=== PATIENT | male | born 1935 | race Caucasian/White ===

== ENCOUNTER 2016-06-22 16:02 | Emergency (ER) | payer MEDICARE, OTHER ==
[~2016-06-22] VITALS: Ht 180.3 cm; Wt 59.0 kg
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
[2016-06-22 17:28] LABS: AUTOMATED NEUTROPHIL # 5.6 TH/MM3 (1.8-7.7); BASOPHIL # 0.1 TH/MM3 (0-0.2); BASOPHIL % 0.7 % (0.0-2.0); EOSINOPHIL # 0.2 TH/MM3 (0-0.4); EOSINOPHIL % 2.4 % (0.0-4.0); HEMATOCRIT 40.7 % (39.0-51.0); HEMO FLAGS DIFF FINAL; LYMPH % 21.1 % (9.0-44.0); LYMPHOCYTE # 1.8 TH/MM3 (1.0-4.8); MEAN CELL VOLUME 89.5 FL (80.0-100.0); MEAN CORPUSCULAR HEMOGLOBIN 30.8 PG (27.0-34.0); MEAN CORPUSCULAR HGB CONC 34.4 % (32.0-36.0); MONO % 8.2 % (0.0-8.0); NEUT % 67.6 % (16.0-70.0); PLATELET COUNT 185 TH/MM3 (150-450); RED BLOOD COUNT 4.55 MIL/MM3 (4.50-5.90); RED CELL DISTRIBUTION WIDTH 13.1 % (11.6-17.2); WHITE BLOOD COUNT 8.4 TH/MM3 (4.0-11.0)
[2016-06-22 17:41] VITALS: BP 137/74; PULSE 62; RESP 18; TEMP 97.8; O2SAT 99
[2016-06-22 17:46] VITALS: BP 137/74; PULSE 62; RESP 18; TEMP 98.3; O2SAT 98
[2016-06-22 17:46] LABS: BACTERIA, URINE RARE /hpf; BLOOD, URINE NEG (NEG); COMMENT (UR) CULTURE INDICATED; CULTURE IF INDICATED CULTURE INDICATED; GLUCOSE,URINE NEG (NEG); HYALINE CAST, URINE 4 /lpf (RARE); KETONE, URINE NEG (NEG); MUCUS URINE FEW /lpf (OCC); NITRITE,URINE NEG (NEG); PH, URINE 5.5 (5.0-8.5); SQUAMOUS EPITHELIAL CELL URINE <1 /hpf (0-5); URINE COLOR YELLOW (YELLW/STRAW)
[2016-06-22 17:53] LABS: AMPHETAMINE, URINE NEG (NEG); BARBITURATES, URINE NEG (NEG); COCAINE, URINE NEG (NEG)
[2016-06-22 17:56] LABS: ANION GAP 10 MEQ/L (5-15); AST (GOT) 28 U/L (15-37); BICARBONATE 25.5 MEQ/L (21.0-32.0); BLOOD UREA NITROGEN 31 MG/DL (7-18); CHLORIDE 105 MEQ/L (98-107); GLOMERULAR FILTRATION RATE 71 ML/MIN (>89); POTASSIUM 3.8 MEQ/L (3.5-5.1); SODIUM (NA) 140 MEQ/L (136-145)
[2016-06-22 17:59] LABS: ALKALINE PHOSPHATASE 90 U/L (45-117); ALT (GPT) 28 U/L (12-78); TOTAL BILIRUBIN ADULT 0.3 MG/DL (0.2-1.0)
[2016-06-22] MEDS ORDERED: CIPROFLOXACIN 500 MG TAB PO ONE (18:30)
[2016-06-22 19:14] VITALS: BP 148/70; PULSE 68; RESP 18; TEMP 98.1; O2SAT 98
[2016-06-22] MEDS ORDERED: SODIUM CHLOR 0.9% 1000 ML INJ 1,000 ML IV ONE (21:00)
[2016-06-22 21:21] VITALS: BP 158/77; PULSE 67; RESP 18; O2SAT 98
--- NOTE | 2016-06-22 21:29 | RADRPT ---
EXAM DATE/TIME: 06/22/2016 21:18 [place] COMPARISON: No previous studies available for comparison. INDICATIONS : Altered mental status RADIATION DOSE: 42.79 CTDIvol (mGy) MEDICAL HISTORY : Dementia. SURGICAL HISTORY : None. ENCOUNTER: Initial ACUITY: 1 day PAIN SCALE: 0/10 LOCATION: Bilateral cranial TECHNIQUE: Multiple contiguous axial images were obtained of the head. Using automated exposure control and adj ustment of the mA and/or kV according to patient size, radiation dose was kept as low as reasonably a chievable to obtain optimal diagnostic quality images. FINDINGS: There is moderate, diffuse ventriculomegaly. Chronic appearing low attenuation seen in the periventri cular and deep white matter. No intracranial hemorrhage or hematoma. No mass, mass effect or midline shift. No evidence of an acute ischemic event. Skull is intact. CONCLUSION: 1. No bleed or other acute intracranial abnormality demonstrated. 2. Moderate ventriculomegaly, presumably chronic. Normal pressure hydrocephalus would be in the diffe rential. 3. Chronic white matter changes. Balbir Graham MD on June 22, 2016 at 21:26 Board Certified Radiologist. This report was verified electronically.
[2016-06-22] MEDS ORDERED: ONDANSETRON HCL 4 MG/2 ML VIAL ONE (23:16)
[2016-06-23 01:02] VITALS: BP 140/67; PULSE 65; RESP 16; O2SAT 98
[2016-06-23 03:38] VITALS: BP 127/78; PULSE 68; RESP 16; O2SAT 98
--- NOTE | 2016-06-23 11:54 | EKG ---
Date Performed: 06/22/2016 Time Performed: 17:22:12 PTAGE: 81 years EKG: SINUS BRADYCARDIA NONSPECIFIC T-WAVE ABNORMALITY BORDERLINE ECG Baseline artifact makes thi s substandard for interpretation NO PREVIOUS TRACING DOCTOR: Denver Rodgers Interpretating Date/Time 06/23/2016 11:52:58
[2016-06-23 13:45] VITALS: BP 140/82
--- NOTE | 2016-06-25 11:50 | HHI.HP ---
Provisional Diagnosis Admission Date [place] I. Dementia with Behavioral disturbances Certification of Person's Competence To Provide Express and Informed Consent I have personally examined Álvaro Arvizu , a person being served at [facility] on, Jun 25, 2016 11:37. Express and informed consent means consent voluntarily given in writing, by a competent person, after sufficient explanation and disclosure of the subject matter involved to enable the person to make a knowing and willful decision without any element of force, fraud, deceit, duress, or other form of constraint or coercion. This person is 18 years of age or older, is not now known to be incompetent to consent to treatment with a guardian advocate, and does not have a health care surrogate or proxy currently making medical treatment decisions. I have found this person to be one of the following: [] Competent to provide express and informed consent, as defined above, for voluntary admission to this facility and is competent to provide express and informed consent for treatment. He/she has the consistent capacity to make well reasoned, willful, and knowing decisions concerning his or her medical or mental health treatment. The person fully and consistently understands the purpose of the admission for examination/placement and is fully capable of personally exercising all rights assured [place] [] Incompetent to provide express and informed consent to voluntary admission, and this is incompetent to provide express and informed consent to treatment. The person must be transferred to involuntary status and a petition for a guardian advocate filed with the Circuit Court. [X Refusing to provide express and informed consent to voluntary admission but is competent to provide express and informed consent for treatment. The person must be discharged or transferred to involuntary status. Form shall be completed within 24 hours of a person's arrival at the receiving facility and filed in the clinical record of each person: 1. Admitted on a voluntary basis 2. Permitted to provide express and informed consent to his/her own treatment 3. Allowed to transfer from involuntary to voluntary status 4. Prior to permitting a person to consent to his or her own treatment after having been previously found incompetent to consent to treatment. History of Present Illness Capacity: Lacks Capacity HPI The patient is a 81-year-old man, was , with psychiatric history of dementia with behavior disturbances, he is domiciled with his , with no medical history, he was in they are a couple of days ago for behavioral disturbances and was discharged back to his house, but yesterday was brought again on the Messer act due to aggressive behavior at home. Patient was seen for evaluation today, he seems to be very lethargic, alert but distant, he very rarely answer questions and follow commands, he seems to be disoriented in time, person and place, and does not provide any meaningful information for the psychiatric assessment most probably due to the level of his dementia. His was try to be contacted for collateral information, but she was not reached. Review of Systems ROS Limitations: Uncooperative Past Family Social History Coded Allergies: No Known Allergies (Unverified , 06/22/16) Reported Medications Betaxolol Opth Drops 0.5% Soln1-2 Drop EACH EYE BID #1 BOTTLE Ref 0 06/25/16 Brinzolamide-Brimonidine Opth Drops (Simbrinza Opth Drops)1-0.2% Susp1 Drop EACH EYE Q8HR #1 BOTTLE Ref 0 06/25/16 Rivastigmine Patch (Exelon Patch)4.6 mg/24 hr Patch1 Patch T-DERMAL DAILY #30 PATCH Ref 0 06/25/16 Mirtazapine 15 Mg Tab15 Mg PO HS #30 TAB Ref 0 06/25/16 Meloxicam 7.5 Mg Tab7.5 Mg PO DAILY Ref 0 06/25/[address] (Nexium 24 HR)20 Mg Capdr40 Mg PO DAILY 06/25/16 Sertraline 100 Mg Xnq123 Mg PO DAILY #30 TAB Ref 0 06/25/16 Sertraline 50 Mg Tab50 Mg PO HS #30 TAB Ref 0 06/25/16 Silodosin (Rapaflo)4 Mg Cap4 Mg PO HS #30 CAP Ref 0 06/25/16 Atenolol 25 Mg Tab25 Mg PO DAILY #30 TAB 06/25/16 Physical Exam Vital Signs Vital Signs Date Time Temp Pulse Resp B/P Pulse Ox O2 Delivery O2 Flow Rate FiO2 06/23/16 13:45 62 20 140/82 96 06/23/16 03:38 Room Air 06/22/16 19:14 98.1 Mental Status Examination Patient is non-cooperative with mental status due to level of dementia Assessment & Plan Problem List: (1) Dementia Assessment & Plan: On psychiatric evaluation today the patient seems to be alert, but distant, lethargic, non-cooperative with psychiatric assessment and unable to provide any meaningful information. No collateral information is available as of this moment. Will place a hospitalist consult to do a full workup of dementia amputation underlying medical conditions accounting for AMS. Will restart Zoloft 100 mg and Remeron 15 mg, the patient has been on. Also will consult PT to assess level of care. custodial worker intervention for collateral information and was started to coordinate safe discharge. ICD Code: F03.90 Assessment & Plan Estimated LOS: days Problem Qualifiers (1) Dementia: Qualified Code: F03.91 - Dementia with behavioral disturbance, unspecified dementia type Diogo Mcclellan MD Jun 25, 2016 11:50
== END 2016-06-23 13:52 ==
LOC: NEPE 16:02 → NEPA 06-23 13:52
DX: F03.90 Unspecified dementia, unspecified severity, without behavioral disturbance, psychotic disturbance, mood disturbance, and anxiety (principal); N39.0 Urinary tract infection, site not specified; R94.31 Abnormal electrocardiogram [ECG] [EKG]
CPT/HCPCS: 70450; 80053; 80307; 80320; 81001; 85025; 87086; 93005; 96361; 96374; 99285; J2405; J7030

== ENCOUNTER 2016-06-24 20:12 | Inpatient (IN) | payer MEDICARE, OTHER ==
[2016-06-24 22:30] VITALS: BP 137/72; PULSE 78; RESP 18; TEMP 98.1; O2SAT 98
[2016-06-24] MEDS ORDERED: diphenhydrAMINE HCL 50 MG CAP PO PRN (23:00)
[2016-06-24] MEDS ORDERED: diphenhydrAMINE HCL 50 MG/ML VIAL IM PRN (23:15)
[2016-06-24] MEDS ORDERED: ALUMINUM/MAGNESIUM/SIMETH 30 ML CUP PO PRN (23:15)
[2016-06-24] MEDS ORDERED: LORazepam 2 MG/ML VIAL - age > 65 yrs IM PRN (23:15)
[2016-06-24] MEDS ORDERED: MAGNESIUM HYDROXIDE SUSP 30 ML CUP PO PRN (23:15)
[2016-06-25 05:42] VITALS: BP 135/78; PULSE 76; RESP 16; TEMP 98; O2SAT 98
[2016-06-25] MEDS ORDERED: MIRTA15 PO (08:02)
[2016-06-25] MEDS ORDERED: ATEN25TA PO (08:02)
[2016-06-25] MEDS ORDERED: SERT-129 PO (08:02)
[2016-06-25] MEDS ORDERED: ESOM1CAP6 PO (08:02)
[2016-06-25] MEDS ORDERED: RAPA4CAP PO (08:02)
[2016-06-25] MEDS ORDERED: SERT-132 PO (08:02)
[2016-06-25] MEDS ORDERED: RIVA4.6T T-DERMAL (08:02)
[2016-06-25] MEDS ORDERED: MELO7.5T4 PO (08:02)
[2016-06-25 08:34] LABS: AUTOMATED NEUTROPHIL # 7.9 TH/MM3 (1.8-7.7); BASOPHIL % 0.3 % (0.0-2.0); EOSINOPHIL # 0.1 TH/MM3 (0-0.4); HEMATOCRIT 38.6 % (39.0-51.0); HEMO FLAGS DIFF FINAL; LYMPH % 11.6 % (9.0-44.0); LYMPHOCYTE # 1.2 TH/MM3 (1.0-4.8); MEAN CELL VOLUME 89.6 FL (80.0-100.0); MEAN CORPUSCULAR HEMOGLOBIN 30.4 PG (27.0-34.0); NEUT % 79.1 % (16.0-70.0); PLATELET COUNT 171 TH/MM3 (150-450); RED BLOOD COUNT 4.31 MIL/MM3 (4.50-5.90); RED CELL DISTRIBUTION WIDTH 12.9 % (11.6-17.2)
[2016-06-25 09:12] LABS: ALKALINE PHOSPHATASE 72 U/L (45-117); ALT (GPT) 27 U/L (12-78); ANION GAP 13 MEQ/L (5-15); AST (GOT) 37 U/L (15-37); BICARBONATE 21.8 MEQ/L (21.0-32.0); BLOOD UREA NITROGEN 29 MG/DL (7-18); CHLORIDE 103 MEQ/L (98-107); GLOMERULAR FILTRATION RATE 69 ML/MIN (>89); HDL CHOLESTEROL 45.4 MG/DL (40.0-60.0); LDL CHOLESTEROL 93 MG/DL (0-99); POTASSIUM 3.6 MEQ/L (3.5-5.1); SODIUM (NA) 138 MEQ/L (136-145); TOTAL BILIRUBIN ADULT 0.6 MG/DL (0.2-1.0)
[2016-06-25] MEDS ORDERED: BRIN1SUS2 EACH EYE (11:37)
[2016-06-25] MEDS ORDERED: BETA0.5S9 EACH EYE (11:37)
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
[2016-06-25 16:25] LABS: HEMOGLOBIN A1b 0.8 %; HEMOGLOBIN Ao 85.8 %; HEMOGLOBIN LA1C 1.7 %; HEMOGLOBIN P3 3.8 %
[2016-06-25 19:33] VITALS: BP 133/63; PULSE 62; RESP 16; TEMP 98.2; O2SAT 96
[2016-06-25] MEDS: diphenhydrAMINE HCL 50 MG CAP - HS PRN PO (20:23)
[2016-06-25] MEDS: BETAXOLOL HCL 0.5% EACH EYE SCH (20:23)
[2016-06-25] MEDS: SULFAMETHOXAZOLE-TRIMETHOPRIM DS 800-160 MG TAB PO SCH (20:23)
[2016-06-25] MEDS: MIRTAZAPINE 15 MG TAB PO SCH (20:23)
[2016-06-25] MEDS: ACETAMINOPHEN 325 MG TAB PO PRN (20:24)
[2016-06-25] MEDS: TAMSULOSIN HCL 0.4 MG CAP PO SCH (20:24)
[2016-06-26 05:56] VITALS: BP 137/67; PULSE 72; RESP 17; TEMP 98.4; O2SAT 99
[2016-06-26] MEDS: BETAXOLOL HCL 0.5% EACH EYE SCH ×2 (08:54→20:51)
[2016-06-26] MEDS: SULFAMETHOXAZOLE-TRIMETHOPRIM DS 800-160 MG TAB PO SCH (08:54)
[2016-06-26] MEDS: SERTRALINE HCL 100 MG TAB PO SCH (08:54)
[2016-06-26] MEDS: ATENOLOL 25 MG TAB PO SCH (08:54)
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
--- NOTE | 2016-06-26 12:34 | HHI.PYPN ---
Subjective Remarks Patient seen for evaluation with nurse Angelo, patient is distant, kind of lethargic but alert, patient is pleasantly confused and demented, he can follow some simple commands, he denies any pain or distress, he described his mood as good, due to the level of dementia he is unable to answer appropriately to questioning of the psychiatric reevaluation, he has been compliant with medications, he was visited today by PT and hospitalist for underlying medical conditions and to assess level of functioning. No agitation or aggressive behavior so far reported. Review of Systems Other No significant changes seen 06/25/2016 Objective Alert: Yes [place]: Person Mood: Calm Affect: Restricted Memory Intact: Remote Hallucinations: Other (he denies) Delusions: No (none illicited) Delusion Type: Other (none elicited) Suicidal: Ideation (he denies) Homicidal: Ideation (he denies) Insight/Judgement Poor Vitals/IOs Vital Signs Date Time Temp Pulse Resp B/P Pulse Ox O2 Delivery O2 Flow Rate FiO2 06/26/16 05:56 98.4 72 17 137/67 99 Intake and Output 06/25/16 06/25/16 06/26/16 08:00 16:00 00:00 Intake Total 60 ml 240 ml Balance 60 ml 240 ml Assessment & Plan Problem List: (1) Dementia Assessment & Plan: Patient will continue process of psychiatric admission for stabilization of behavior dysregulation and impulse control, no changes in medications today. We will continue working in discharge planning. ICD Code: F03.90 Assessment & Plan Estimated LOS: days Justification for Cont. Inpt. Patient is psychiatric admission for stabilization of behavior dysregulation and impulse control, and also to coordinate a safe discharge plan Request HC Surrog/Guard Advoc?: Yes Problem Qualifiers (1) Dementia: Qualified Code: F03.91 - Dementia with behavioral disturbance, unspecified dementia type Diogo Mcclellan MD Jun 26, 2016 12:34
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
[2016-06-26] MEDS: ACETAMINOPHEN 325 MG TAB PO PRN (14:09)
[2016-06-26] MEDS: LORazepam 0.5 MG TAB age > 65 yrs PO PRN (14:09)
[2016-06-26 19:09] VITALS: BP 110/65; PULSE 69; RESP 16; TEMP 97.7; O2SAT 97
[2016-06-26] MEDS: TAMSULOSIN HCL 0.4 MG CAP PO SCH (20:51)
[2016-06-26] MEDS: MIRTAZAPINE 15 MG TAB PO SCH (20:51)
[2016-06-26] MEDS: diphenhydrAMINE HCL 50 MG CAP - HS PRN PO (20:52)
[2016-06-27] VITALS: BP 115/66; PULSE 72; RESP 16; TEMP 97.9; O2SAT 96
[2016-06-27 05:48] VITALS: BP 98/55; PULSE 74; RESP 15; TEMP 98.2; O2SAT 95
[2016-06-27 08:00] VITALS: BP 99/56; PULSE 80; RESP 17; TEMP 97.8
[2016-06-27] MEDS: ATENOLOL 25 MG TAB PO SCH (08:30)
[2016-06-27] MEDS: BETAXOLOL HCL 0.5% EACH EYE SCH ×2 (08:30→20:30)
[2016-06-27] MEDS: SERTRALINE HCL 100 MG TAB PO SCH (08:30)
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
--- NOTE | 2016-06-27 11:46 | HHI.PYPN ---
Subjective Remarks Patient was seen and discussed with the staff developer. No problem reported. Patient was quietly resting in his bed. He has problem with his memory. Denied any active auditory or visual hallucinations. Denied any suicidal ideation intentions or plan. Continue with the same treatment Review of Systems Except as stated in HPI: all other systems reviewed are Neg Psychiatric: COMPLAINS OF: Confusion, Mood changes, Depression Objective Alert: Yes [place]: Person Mood: Calm Affect: Restricted Memory Intact: Recent (impaired), Remote Hallucinations: Other (he denies) Delusions: No (none illicited) Delusion Type: Other (none elicited) Suicidal: Ideation (he denies) Homicidal: Ideation (he denies) Insight/Judgement Limited to poor Vitals/IOs Vital Signs Date Time Temp Pulse Resp B/P Pulse Ox O2 Delivery O2 Flow Rate FiO2 06/27/16 08:00 97.8 80 17 99/56 06/27/16 05:48 95 Intake and Output 06/26/16 06/26/16 06/27/16 08:00 16:00 00:00 Intake Total 450 ml 270 ml Output Total 1 ml Balance 449 ml 270 ml Assessment & Plan Problem List: (1) Dementia ICD Code: F03.90 Assessment & Plan Estimated LOS: days Justification for Cont. Inpt. Risk of decompensation at a lower level of care Request HC Surrog/Guard Advoc?: Yes Problem Qualifiers (1) Dementia: Qualified Code: F03.91 - Dementia with behavioral disturbance, unspecified dementia type Pipo Mary MD Jun 27, 2016 11:45
[2016-06-27 19:00] VITALS: BP 119/59; PULSE 67; RESP 17; TEMP 98.1; O2SAT 99
[2016-06-27] MEDS: MIRTAZAPINE 15 MG TAB PO SCH (20:30)
[2016-06-27] MEDS: TAMSULOSIN HCL 0.4 MG CAP PO SCH (20:30)
[2016-06-27] MEDS: BRINZOLAMIDE EACH EYE SCH (21:12)
[2016-06-27] MEDS: OPTH EACH EYE SCH (21:12)
[2016-06-27] MEDS: BRIMONIDINE 0.2% EACH EYE SCH (21:12)
[2016-06-28] VITALS: BP 126/69; PULSE 67; RESP 15; TEMP 97.9; O2SAT 96
[2016-06-28 05:11] VITALS: BP 108/59; PULSE 68; RESP 16; TEMP 98.2; O2SAT 97
[2016-06-28] MEDS: OPTH EACH EYE SCH ×3 (05:16→21:59)
[2016-06-28] MEDS: BRIMONIDINE 0.2% EACH EYE SCH ×3 (05:16→21:59)
[2016-06-28] MEDS: BRINZOLAMIDE EACH EYE SCH ×3 (05:16→21:59)
[2016-06-28] MEDS: ATENOLOL 25 MG TAB PO SCH (09:41)
[2016-06-28] MEDS: BETAXOLOL HCL 0.5% EACH EYE SCH ×2 (09:42→21:58)
[2016-06-28] MEDS: SERTRALINE HCL 100 MG TAB PO SCH (09:42)
[2016-06-28] MEDS: LORazepam 0.5 MG TAB age > 65 yrs PO PRN (09:42)
[2016-06-28 09:46] VITALS: BP 125/67; PULSE 69
--- NOTE | 2016-06-28 10:39 | HHI.PYPN ---
Subjective Remarks Patient was seen and discussed with the staff registered nurse. Patient reported that he has been doing okay no behavior or management problem reported. He has slept okay no side effects were complained he is compliant in taking medication. Continue with the same treatment Review of Systems Except as stated in HPI: all other systems reviewed are Neg Psychiatric: COMPLAINS OF: Mood changes, Depression Objective Alert: Yes [place]: Person Mood: Calm Affect: Restricted Memory Intact: Recent (impaired), Remote Hallucinations: Other (he denies) Delusions: No (none illicited) Delusion Type: Other (none elicited) Suicidal: Ideation (he denies) Homicidal: Ideation (he denies) Insight/Judgement Limited to poor Vitals/IOs Vital Signs Date Time Temp Pulse Resp B/P Pulse Ox O2 Delivery O2 Flow Rate FiO2 06/28/16 09:46 69 125/67 06/28/16 05:11 98.2 16 97 Intake and Output 06/27/16 06/27/16 06/28/16 08:00 16:00 00:00 Intake Total 40 ml 500 ml Output Total 250 ml 25 ml Balance -250 ml 15 ml 500 ml Assessment & Plan Problem List: (1) Dementia ICD Code: F03.90 Assessment & Plan Estimated LOS: days Justification for Cont. Inpt. Risk of decompensation at a lower level of care Request HC Surrog/Guard Advoc?: Yes Problem Qualifiers (1) Dementia: Qualified Code: F03.91 - Dementia with behavioral disturbance, unspecified dementia type Pipo Mary MD Jun 28, 2016 10:39
[2016-06-28 19:58] VITALS: BP_SYST 126; BP_SYST 141; BP_DIAS 68; BP_DIAS 77; PULSE 70; PULSE 85; RESP 16; RESP 20; TEMP 98; O2SAT 95; O2SAT 96
[2016-06-28] MEDS: TAMSULOSIN HCL 0.4 MG CAP PO SCH (21:59)
[2016-06-28] MEDS: MIRTAZAPINE 15 MG TAB PO SCH (21:59)
[2016-06-29] MEDS: BRINZOLAMIDE EACH EYE SCH ×3 (05:46→21:23)
[2016-06-29] MEDS: BRIMONIDINE 0.2% EACH EYE SCH ×3 (05:46→21:23)
[2016-06-29] MEDS: OPTH EACH EYE SCH ×3 (05:46→21:23)
[2016-06-29 06:19] VITALS: BP 139/98; PULSE 65; RESP 16; TEMP 97; O2SAT 98
[2016-06-29] MEDS: ATENOLOL 25 MG TAB PO SCH (08:21)
[2016-06-29] MEDS: SERTRALINE HCL 100 MG TAB PO SCH (08:21)
[2016-06-29] MEDS: BETAXOLOL HCL 0.5% EACH EYE SCH ×2 (08:22→21:24)
--- NOTE | 2016-06-29 11:03 | HHI.PYPN ---
Subjective Remarks Patient was seen today for psychiatric reevaluation alone with nurse Angelo, dialysis social worker Casandra, patient is stays that he has been doing okay, he states that he is happy with the results of the hospitalization, he described his mood as okay, as per nurses and the staff members no behavioral problems, agitation, aggressive behavior were observed or reported during the week and, patient has been compliant with medications. Review of Systems Other No somatic complaints Objective Alert: Yes [place]: Person Mood: Calm Affect: Restricted Memory Intact: Recent (impaired), Remote Hallucinations: Other (he denies) Delusions: No (none illicited) Delusion Type: Other (none elicited) Suicidal: Ideation (he denies) Homicidal: Ideation (he denies) Insight/Judgement Poor Vitals/IOs Vital Signs Date Time Temp Pulse Resp B/P Pulse Ox O2 Delivery O2 Flow Rate FiO2 06/29/16 06:19 97.0 65 16 139/98 98 Intake and Output 06/28/16 06/28/16 06/28/16 07:59 15:59 23:59 Intake Total 250 ml 720 ml 25 ml Output Total 445 ml Balance 250 ml 720 ml -420 ml Assessment & Plan Problem List: (1) Dementia ICD Code: F03.90 Assessment & Plan Estimated LOS: days Justification for Cont. Inpt. Patient poses a very high risk to decompensate in a less structured and unsupervised environment. new car make ready worker is working in the safe discharge plan. Request HC Surrog/Guard Advoc?: Yes Problem Qualifiers (1) Dementia: Qualified Code: F03.91 - Dementia with behavioral disturbance, unspecified dementia type Diogo Mcclellan MD Jun 29, 2016 11:03
[2016-06-29] MEDS: LORazepam 0.5 MG TAB age > 65 yrs PO PRN (18:43)
[2016-06-29] MEDS: ACETAMINOPHEN 325 MG TAB PO PRN (18:43)
[2016-06-29] MEDS: MIRTAZAPINE 15 MG TAB PO SCH (21:23)
[2016-06-29] MEDS: TAMSULOSIN HCL 0.4 MG CAP PO SCH (21:23)
[2016-06-29 21:46] VITALS: BP 137/78; PULSE 75; RESP 18; TEMP 97.7; O2SAT 98
[2016-06-30 04:49] VITALS: BP 110/61; PULSE 64; RESP 16; TEMP 97.4; O2SAT 97
[2016-06-30] MEDS: OPTH EACH EYE SCH ×3 (06:08→22:00)
[2016-06-30] MEDS: BRINZOLAMIDE EACH EYE SCH ×3 (06:08→22:00)
[2016-06-30] MEDS: BRIMONIDINE 0.2% EACH EYE SCH ×3 (06:08→22:00)
[2016-06-30] MEDS: ATENOLOL 25 MG TAB PO SCH (09:00)
[2016-06-30] MEDS: SERTRALINE HCL 100 MG TAB PO SCH (09:00)
[2016-06-30] MEDS: BETAXOLOL HCL 0.5% EACH EYE SCH ×2 (09:00→21:00)
--- NOTE | 2016-06-30 13:26 | HHI.PYPN ---
Subjective Remarks Patient was seen today for psychiatric reevaluation along with social studies department chair Casandra and nurse Angelo, patient has definitely a brighter affect, more participation in a conversation, he says that he feels okay, denies distress, pain, problems with appetite, problems with sleep, concentration or energy. Patient is able to answer simple questioning, he is mostly pleasantly confused and demented. He denies suicidal and homicidal ideation, he denies visual and auditory hallucinations. No periods of agitation, aggressive behavior, behavior or mood dysregulation observed or reported. He has been medication compliant, no significant side effects. Review of Systems Other No significant changes since 06/25/2016 Objective Alert: Yes [place]: Person Mood: Calm Affect: Restricted Memory Intact: Recent (impaired), Remote Hallucinations: Other (he denies) Delusions: No (none illicited) Delusion Type: Other (none elicited) Suicidal: Ideation (he denies) Homicidal: Ideation (he denies) Insight/Judgement Poor Vitals/IOs Vital Signs Date Time Temp Pulse Resp B/P Pulse Ox O2 Delivery O2 Flow Rate FiO2 06/30/16 04:49 97.4 64 16 110/61 97 Intake and Output 06/29/16 06/29/16 06/30/16 08:00 16:00 00:00 Intake Total 0 ml Output Total 100 ml Balance -100 ml Assessment & Plan Problem List: (1) Dementia Assessment & Plan: Patient will continue the process of psychiatric hospitalization for stabilization of mood and behavior, no changes in psychotropics today, motivation and psycho location provided. ICD Code: F03.90 Assessment & Plan Estimated LOS: days Justification for Cont. Inpt. Patient needs psychiatric hospitalization and coordination of safe discharge Request HC Surrog/Guard Advoc?: Yes Problem Qualifiers (1) Dementia: Qualified Code: F03.91 - Dementia with behavioral disturbance, unspecified dementia type Doigo Mcclellan MD Jun 30, 2016 13:26
[2016-06-30 18:00] VITALS: BP 122/57; PULSE 75; RESP 17; TEMP 98.6; O2SAT 97
[2016-06-30] MEDS: TAMSULOSIN HCL 0.4 MG CAP PO SCH (21:00)
[2016-06-30] MEDS: MIRTAZAPINE 15 MG TAB PO SCH (21:00)
[2016-07-01 05:44] VITALS: BP 142/61; PULSE 70; RESP 16; TEMP 97.3; O2SAT 97
[2016-07-01] MEDS: BRIMONIDINE 0.2% EACH EYE SCH ×3 (06:21→21:33)
[2016-07-01] MEDS: OPTH EACH EYE SCH ×3 (06:21→21:33)
[2016-07-01] MEDS: BRINZOLAMIDE EACH EYE SCH ×3 (06:21→21:33)
[2016-07-01] MEDS: BETAXOLOL HCL 0.5% EACH EYE SCH ×2 (08:23→21:33)
[2016-07-01] MEDS: SERTRALINE HCL 100 MG TAB PO SCH (08:23)
[2016-07-01] MEDS: ATENOLOL 25 MG TAB PO SCH (08:23)
--- NOTE | 2016-07-01 13:59 | HHI.PYPN ---
Subjective Remarks Patent today seems to be alert, but to be kind of distant and lethargic, however he endorses good mood, and as per nurses he has been eating ok and interacting minimally as usual. Patient is just oriented in person, disoriented in time and place, he denies suicidal and homicidal ideation, he denies visual and auditory hallucinations. Review of Systems Other No somatic complaints Objective Alert: Yes [place]: Person Mood: Calm Affect: Restricted Memory Intact: Recent (impaired), Remote Hallucinations: Other (he denies) Delusions: No (none illicited) Delusion Type: Other (none elicited) Suicidal: Ideation (he denies) Homicidal: Ideation (he denies) Insight/Judgement Poor Vitals/IOs Vital Signs Date Time Temp Pulse Resp B/P Pulse Ox O2 Delivery O2 Flow Rate FiO2 07/01/16 05:44 97.3 70 16 142/61 97 Intake and Output 06/30/16 06/30/16 07/01/16 08:00 16:00 00:00 Intake Total 0 ml 480 ml Output Total 200 ml Balance -200 ml 480 ml Assessment & Plan Problem List: (1) Dementia ICD Code: F03.90 Assessment & Plan Estimated LOS: days Justification for Cont. Inpt. Patient most probably will be discharged tomorrow to [facility]. Request HC Surrog/Guard Advoc?: Yes Problem Qualifiers (1) Dementia: Qualified Code: F03.91 - Dementia with behavioral disturbance, unspecified dementia type Diogo Mcclellan MD Jul 01, 2016 13:58
[2016-07-01 19:26] VITALS: BP 110/64; PULSE 66; RESP 16; TEMP 98.3; O2SAT 99
[2016-07-01] MEDS: TAMSULOSIN HCL 0.4 MG CAP PO SCH (21:33)
[2016-07-01] MEDS: MIRTAZAPINE 15 MG TAB PO SCH (21:33)
[2016-07-02] MEDS: OPTH EACH EYE SCH (05:56)
[2016-07-02] MEDS: BRIMONIDINE 0.2% EACH EYE SCH (05:56)
[2016-07-02] MEDS: BRINZOLAMIDE EACH EYE SCH (05:56)
[2016-07-02 06:18] VITALS: BP 131/63; PULSE 70; RESP 18; TEMP 97.8; O2SAT 95
[2016-07-02] MEDS ORDERED: MIRTA15 PO (08:01)
[2016-07-02] MEDS ORDERED: ZOLO100T PO (08:01)
--- NOTE | 2016-07-02 08:14 | HHI.DS ---
Psychiatry Discharge Summary Inpatient Psychiatric care?: No Advance Directive: No Reason Not Provided: Due to Patient Condition Mental Health AdvanceDirective: No Health Care Proxy: Yes Admission Admission Date Jun 24, 2016 at 20:12 Admission Diagnosis: (1) Dementia ICD Code: F03.90 Brief History The patient is a 81-year-old man, was , with psychiatric history of dementia with behavior disturbances, he is domiciled with his , with no medical history, he was in they are a couple of days ago for behavioral disturbances and was discharged back to his house, but yesterday was brought again on the [place] act due to aggressive behavior at home. Patient was seen for evaluation today, he seems to be very lethargic, alert but distant, he very rarely answer questions and follow commands, he seems to be disoriented in time, person and place, and does not provide any meaningful information for the psychiatric assessment most probably due to the level of his dementia. His was try to be contacted for collateral information, but she was not reached. Tobacco Use In Past 30 Days: Cognitive Impairment Alcohol Use: Never Hospital Course Patient was admitted in the med/psychiatric unit due to aggressive behavior at home, agitation, confusion, poor impulsive control. Since patient was admitted in the unit patient was mostly calm and cooperative, at times he was lethargic and distant, but always alert and responsive to simple questions. Most of the time patient was pleasantly confused and disoriented which is part of his baseline as suffering of dementia. Due to the psychiatric admission patient was visited by hospitalist and he was treated for UTI with antibiotic therapy. He was always compliant with psychiatric and medical medications, he may show any significant. He was also seen by PT for physical therapy, recommendations were followed. No behavioral dysregulation, agitation, aggressive behavior were reported during this hospitalization, patient showed a significant response to psychotropics. Results Blood Pressure 131 / 63 Vital Signs Date Time Temp Pulse Resp B/P Pulse Ox O2 Delivery O2 Flow Rate FiO2 07/02/16 06:18 97.8 70 18 131/63 95 No labs pending Summary of Procedures No procedures pending Pending results at discharge: No Medications # of Antipsychotic meds at D/C: 0 Approp Antipsych med options 1 - Minimum of three failed multiple trials of monotherapy. 2 - Documented plan to taper to monotherapy due to previous use of multiple meds OR cross-taper in progress at D/C. 3 - Documentation of augmentation of Clozapine. 4 - Justification other than those listed in allowable values 1-3, document here : Discharge Discharge Date: Jul 02, 2016 Discharge Diagnosis: (1) Dementia ICD Code: F03.90 Mental Status Exam at Disch elderly man, age-appropriate, good hygiene, [facility], superficially cooperative, calm, his speech is soft and reticent, mood is"fine" , affect is restricted, thought processes has a marked blocking thought and poverty of thought, thought process is devoid of perceptual disturbances, suicidal or homicidal ideation, his insight, impulse control, and judgment are poor, cognition is impaired. Pt Condition on Discharge: Stable Discharge Disposition: Discharge to SNF Discharge Instructions Diet Instructions: Heart Healthy Diet Activities you can perform: Non Weight Bearing Scheduled Appointment: Facility providers Appointment Date: Jul 02, 2016 Appointment Time: 10:00am Discharge Time > 30 minutes Discharge/Advance Care Plan Health Problems: (1) Dementia Goals to promote your health * To prevent worsening of your condition and complications * To maintain your health at the optimal level Directions to meet your goals Take your medications as prescribed Follow your dietary instruction Follow activity as directed Keep your appointments as scheduled Take your immunizations and boosters as scheduled If your symptoms worsen call your PCP, if no PCP go to Urgent Care Center or Emergency Room For 24/ questions related to your inpatient stay or results of tests pending at discharge, please contact Dr. Diogo Mcclellan at Smoking is Dangerous to Your Health. Avoid second hand smoking Problem Qualifiers (1) Dementia: Qualified Code: F03.91 - Dementia with behavioral disturbance, unspecified dementia type Diogo Mcclellan MD Jul 02, 2016 08:14
[2016-07-02] MEDS: BETAXOLOL HCL 0.5% EACH EYE SCH (09:00)
[2016-07-02] MEDS: SERTRALINE HCL 100 MG TAB PO SCH (09:00)
[2016-07-02] MEDS: ATENOLOL 25 MG TAB PO SCH (09:00)
== END 2016-07-02 10:30 | DRG 884 ==
LOC: H4EA 20:12
PROVIDERS: ADMIT Psychiatry & Neurology Psychiatry; ATTEND Psychiatry & Neurology Psychiatry
DX: F03.91 Unspecified dementia, unspecified severity, with behavioral disturbance (principal); N39.0 Urinary tract infection, site not specified; I10 Essential (primary) hypertension; N40.0 Benign prostatic hyperplasia without lower urinary tract symptoms; R13.10 Dysphagia, unspecified; R47.02 Dysphasia; H40.9 Unspecified glaucoma; Z99.3 Dependence on wheelchair
CPT/HCPCS: 80053; 80061; 83036; 85025; Q0163